=== PATIENT | female | born 1960 | race American Indian/Alaskan Native ===

== ENCOUNTER 2019-04-05 00:43 | Emergency (ER) | payer SELFPAY ==
[2019-04-05 01:03] VITALS: BP 139/72
[2019-04-05 01:48] LABS: Basophils % (Auto) 0.3 % (0.0-1.8); Eosinophils # (Auto) 0.2 K/mm3 (0.0-0.4); Eosinophils % (Auto) 3.7 % (0.0-4.3); Hematocrit 36.2 % (30.3-42.9); Hemoglobin 12.3 gm/dl (10.1-14.3); Lymphocytes # (Auto) 1.8 K/mm3 (1.2-5.4); Lymphocytes % (Auto) 45.3 % (13.4-35.0); Mean Corpuscular HGB Conc 34 % (30-34); Mean Corpuscular Volume 92 fl (79-97); Monocytes # (Auto) 0.4 K/mm3 (0.0-0.8); Monocytes % (Auto) 10.3 % (0.0-7.3); Platelet Count 187 K/mm3 (140-440); Red Blood Count 3.93 M/mm3 (3.65-5.03); Red Cell Distribution Width 14.9 % (13.2-15.2)
[2019-04-05 02:59] LABS: Alanine Aminotransferase 16 units/L (7-56); Albumin 4.2 g/dL (3.9-5); BUN/Creatinine Ratio 32; Blood Urea Nitrogen 19 mg/dL (7-17); Calcium 8.7 mg/dL (8.4-10.2); Hemolysis Index 9
[2019-04-05 04:30] LABS: Bilirubin,Urine NEG (Negative); Blood,Urine NEG (Negative); Color,Urine Straw (Yellow); Protein,Urine <15 mg/dL mg/dL (Negative)
--- NOTE | 2019-04-05 05:10 | Emergency Department Report ---
ED Abdominal Pain HPI - General Chief Complaint: Abdominal Pain Stated Complaint: ABD PAIN Source: patient Mode of arrival: Ambulatory Limitations: No Limitations - History of Present Illness Initial Comments: Patient is a 58-year-old female with a history of chronic liver disease who presents to the ED with low back pain and lower abdominal pain for 2 weeks. Patient states that she has been diagnosed with constipation but has never bought any medication prescribed. Patient denies fever, chills, dysuria, urinary frequency and urgency, heavy lifting, dizziness, chest pain, shortness of breath, nausea and vomiting or diarrhea fall or traumatic injury, numbness and tingling or weakness of lower extremities bilaterally and hematuria. MD Complaint: abdominal pain, other (lower back pain) -: Gradual, week(s) (2) Location: suprapubic Radiation: suprapubic Migration to: no migration Severity: moderate Severity scale (0 -10): 4 Quality: aching, dull Consistency: constant Improves With: nothing Worsens With: movement Associated Symptoms: denies other symptoms, constipation. denies: nausea, vomiting, diarrhea, fever, chills, dysuria, hematemesis, hematochezia, melena - Related Data Allergies Allergy/AdvReac Type Severity Reaction Status Date / Time peanut Allergy Itching Verified 04/05/19 00:57 ED Review of Systems ROS: Stated complaint: ABD PAIN Other details as noted in HPI Constitutional: denies: chills, fever Eyes: denies: eye pain, eye discharge, vision change ENT: denies: ear pain, throat pain Respiratory: denies: cough, shortness of breath, wheezing Cardiovascular: denies: chest pain, palpitations Endocrine: no symptoms reported Gastrointestinal: abdominal pain. denies: nausea, vomiting, diarrhea Genitourinary: denies: urgency, dysuria, discharge Musculoskeletal: back pain. denies: joint swelling, arthralgia Skin: denies: rash, lesions Neurological: denies: headache, weakness, paresthesias Psychiatric: denies: anxiety, depression Hematological/Lymphatic: denies: easy bleeding, easy bruising ED Past Medical Hx - Past Medical History Previous Medical History?: No - Surgical History Past Surgical History?: No - Social History Smoking Status: Current Every Day Smoker Substance Use Type: Alcohol ED Physical Exam - General Limitations: No Limitations General appearance: alert, in no apparent distress - Head Head exam: Present: atraumatic, normocephalic - Eye Eye exam: Present: normal appearance, PERRL, EOMI - ENT ENT exam: Present: normal exam, normal orophraynx, mucous membranes moist, TM's normal bilaterally, normal external ear exam - Neck Neck exam: Present: normal inspection, full ROM. Absent: tenderness - Respiratory Respiratory exam: Present: normal lung sounds bilaterally. Absent: respiratory distress, wheezes, rales, chest wall tenderness, accessory muscle use, decreased breath sounds - Cardiovascular Cardiovascular Exam: Present: regular rate, normal rhythm, normal heart sounds. Absent: systolic murmur, diastolic murmur, rubs, gallop - GI/Abdominal GI/Abdominal exam: Present: soft, normal bowel sounds. Absent: distended, tenderness, guarding, hyperactive bowel sounds, hypoactive bowel sounds, organomegaly - Extremities Exam Extremities exam: Present: normal inspection, full ROM, normal capillary refill - Back Exam Back exam: Present: normal inspection, full ROM. Absent: tenderness, muscle spasm, paraspinal tenderness - Neurological Exam Neurological exam: Present: alert, oriented X3, CN II-XII intact, normal gait, reflexes normal - Psychiatric Psychiatric exam: Present: normal affect, normal mood - Skin Skin exam: Present: warm, dry, intact, normal color. Absent: rash ED Course Vital Signs 04/05/19 00:58 Temperature 97.7 F Pulse Rate 67 Respiratory 18 Rate Blood Pressure 139/72 O2 Sat by Pulse 97 Oximetry ED Medical Decision Making - Lab Data Result diagrams: 04/05/19 01:26 04/05/19 01:26 - Medical Decision Making This is a 58-year-old female who presented to the ED with lower back pain and lower abdominal pain for 2 weeks. In the ED, patient is alert and oriented 3 and is not in distress. Lab test results were reviewed and on actionable. Patient fell asleep in the ED and slept throughout her ED stay no complaining of any pain just complaining that it was cold. Patient was discharged home and advised to follow-up with her primary care physician in 5-7 days for reevaluation or return to the ED immediately if symptoms get worse. - Differential Diagnosis abdominal pain; constipation; muscle spasm; UTI Critical care attestation.: If time is entered above; I have spent that time in minutes in the direct care of this critically ill patient, excluding procedure time. ED Disposition Clinical Impression: Spasm of muscle of lower back, Abdominal pain in female Disposition: TO HOME OR SELFCARE Is pt being admited?: No Does the pt Need Aspirin: No Condition: Stable Instructions: Abdominal Pain (ED), Muscle Spasm (ED), Low Back Strain (ED) Additional Instructions: Follow-up with your primary care physician in 5-7 days for reevaluation. Return to the ED immediately if symptoms get worse Referrals: PRIMARY CARE, [Primary Care Provider] - 3-5 Days Time of Disposition: 05:16 Print Language: SUDANESE
== END 2019-04-05 05:25 | disposition home or self-care (01) ==
LOC: ED 00:43
DX: M62.830 Muscle spasm of back (principal); R10.30 Lower abdominal pain, unspecified; F17.200 Nicotine dependence, unspecified, uncomplicated
CPT/HCPCS: 36415; 80053; 81001; 83690; 85025

== ENCOUNTER 2020-12-18 00:17 | Emergency (ER) | payer OTHER ==
[2020-12-18 02:26] LABS: Basophils # (Auto) 0.1 K/mm3 (0.0-0.1); Basophils % (Auto) 0.9 % (0.0-1.8); Eosinophils # (Auto) 0.1 K/mm3 (0.0-0.4); Eosinophils % (Auto) 1.8 % (0.0-4.3); Hematocrit 41.7 % (30.3-42.9); Hemoglobin 14.3 gm/dl (10.1-14.3); Lymphocytes # (Auto) 1.9 K/mm3 (1.2-5.4); Lymphocytes % (Auto) 27.2 % (13.4-35.0); Mean Corpuscular HGB Conc 34 % (30-34); Mean Corpuscular Volume 92 fl (79-97); Monocytes # (Auto) 0.3 K/mm3 (0.0-0.8); Monocytes % (Auto) 3.7 % (0.0-7.3); Platelet Count 329 K/mm3 (140-440); Red Blood Count 4.55 M/mm3 (3.65-5.03); Red Cell Distribution Width 13.9 % (13.2-15.2)
[2020-12-18 02:43] LABS: Alanine Aminotransferase 18 units/L (7-56); Albumin 5.2 g/dL (3.9-5); Blood Urea Nitrogen 12 mg/dL (7-17); Calcium 9.2 mg/dL (8.4-10.2); Hemolysis Index 7
[2020-12-18 03:01] LABS: BUN/Creatinine Ratio 24
== END 2020-12-18 22:23 | disposition left against medical advice (07) ==
LOC: ED 00:17
DX: R11.10 Vomiting, unspecified (principal); Z53.21 Procedure and treatment not carried out due to patient leaving prior to being seen by health care provider
CPT/HCPCS: 36415; 80053; 85025

== ENCOUNTER 2021-12-30 01:43 | Emergency (ER) | payer SELFPAY ==
[2021-12-30 09:17] LABS: Hematocrit 40.3 % (30.3-42.9); Mean Corpuscular HGB Conc 35 % (30-34); Mean Corpuscular Volume 93 fl (79-97); Platelet Count 236 K/mm3 (140-440); Red Blood Count 4.34 M/mm3 (3.65-5.03); Red Cell Distribution Width 14.4 % (13.2-15.2)
[2021-12-30 09:38] LABS: Bacteria,Urine 3+ /HPF (Negative); Calcium Oxalate Crystals,Urine 3+; Mucus,Urine FEW /HPF
[2021-12-30 09:39] LABS: Alanine Aminotransferase 13 units/L (7-56); Albumin 4.6 g/dL (3.9-5); Blood Urea Nitrogen 10 mg/dL (7-17); Calcium 9.3 mg/dL (8.4-10.2); Hemolysis Index 10
[2021-12-30 09:48] LABS: BUN/Creatinine Ratio 17
[2021-12-30 09:54] LABS: RBC,Urine > 182.0 /HPF (0.0-6.0); WBC,Urine > 182.0 /HPF (0.0-6.0)
[2021-12-30 10:00] LABS: Color,Urine Straw (Yellow)
[2021-12-30] MEDS ORDERED: SODIUM CHLORIDE 0.9% 1000 ML 1,000 ML IV ONE (11:11)
[2021-12-30] MEDS ORDERED: cefTRIAXone/NS 1 GM/50 ML 1 GM/50 ML BAG IV ONE (11:11)
[2021-12-30] MEDS ORDERED: KETOROLAC 30 MG/1 ML INJ IV ONE (12:30)
[2021-12-30] MEDS ORDERED: ONDANSETRON 4 MG/2 ML INJ IV ONE (12:30)
--- NOTE | 2021-12-30 12:30 | Emergency Department Report ---
ED Abdominal Pain HPI - General Chief Complaint: Urogenital-Female Stated Complaint: DIFFICULTY URINATING PUI?: No Time Seen by Provider: 12/30/21 08:24 Source: patient, EMS Mode of arrival: Stretcher Limitations: No Limitations - History of Present Illness Initial Comments: 61 yo comes to the ER with "difficulty urinating." No burning or frequency but difficult to start stream. no abd pain or back pain. no fever or chills. am bulatory and nad in ER. Migration to: no migration Severity: moderate Severity scale (0 -10): 3 Quality: aching Consistency: constant Improves With: nothing Worsens With: eating Associated Symptoms: denies other symptoms. denies: nausea, vomiting, diarrhea, fever, chills, constipation, dysuria, hematemesis, hematochezia, melena, hematuria, anorexia, syncope - Related Data Previous Rx's Medication Instructions Recorded Last Taken Type Ondansetron [Zofran Odt] 4 mg PO Q8HR PRN #10 tab.rapdis 12/30/21 Unknown Rx Sulfamethoxazole/Trimethoprim 1 each PO BID #10 tablet 12/30/21 Unknown Rx [Bactrim DS TAB] Tamsulosin [Flomax] 0.4 mg PO QDAY #10 cap 12/30/21 Unknown Rx Allergies Allergy/AdvReac Type Severity Reaction Status Date / Time peanut Allergy Itching Verified 04/05/19 00:57 ED Review of Systems ROS: Stated complaint: DIFFICULTY URINATING Other details as noted in HPI Comment: All other systems reviewed and negative ED Past Medical Hx - Past Medical History Previous Medical History?: No - Surgical History Past Surgical History?: No - Family History Family history: no significant - Social History Smoking Status: Current Every Day Smoker Substance Use Type: Alcohol - Medications Home Medications: Home Medications Medication Instructions Recorded Confirmed Last Taken Type Ondansetron [Zofran Odt] 4 mg PO Q8HR PRN #10 tab.rapdis 12/30/21 Unknown Rx Sulfamethoxazole/Trimethoprim 1 each PO BID #10 tablet 12/30/21 Unknown Rx [Bactrim DS TAB] Tamsulosin [Flomax] 0.4 mg PO QDAY #10 cap 12/30/21 Unknown Rx ED Physical Exam - General Limitations: No Limitations General appearance: alert, in no apparent distress - Head Head exam: Present: atraumatic, normocephalic - Eye Eye exam: Present: normal appearance - ENT ENT exam: Present: mucous membranes moist - Neck Neck exam: Present: normal inspection - Respiratory Respiratory exam: Present: normal lung sounds bilaterally. Absent: respiratory distress - Cardiovascular Cardiovascular Exam: Present: regular rate, normal rhythm. Absent: systolic murmur, diastolic murmur, rubs, gallop - GI/Abdominal GI/Abdominal exam: Present: soft, normal bowel sounds - Extremities Exam Extremities exam: Present: normal inspection - Back Exam Back exam: Present: normal inspection - Neurological Exam Neurological exam: Present: alert, oriented X3 - Psychiatric Psychiatric exam: Present: normal affect, normal mood - Skin Skin exam: Present: warm, dry, intact, normal color. Absent: rash ED Course Vital Signs 12/30/21 12/30/21 02:04 15:34 Temperature 98 F Pulse Rate 68 70 Respiratory 16 18 Rate Blood Pressure 134/72 130/69 [Right] O2 Sat by Pulse 99 99 Oximetry ED Medical Decision Making - Lab Data Result diagrams: 12/30/21 08:29 12/30/21 08:29 - Radiology Data Radiology results: report reviewed, image reviewed see report - Medical Decision Making Labs 12/30/21 12/30/21 12/30/21 08:29 08:29 09:05 WBC 4.9 RBC 4.34 Hgb 14.0 Hct 40.3 MCV 93 MCH 32 MCHC 35 H RDW 14.4 Plt Count 236 Sodium 140 Potassium 4.4 Chloride 102.4 Carbon Dioxide 30 Anion Gap 12 BUN 10 Creatinine 0.6 Estimated GFR > 60 BUN/Creatinine Ratio 17 Glucose 93 Calcium 9.3 Total Bilirubin 0.60 AST 19 ALT 13 Alkaline Phosphatase 49 Total Protein 6.5 Albumin 4.6 Albumin/Globulin Ratio 2.4 Urine Color Straw Urine Turbidity Cloudy Specific [place] (Man) 1.020 Ur Protein (Man) 3+ Ur Ketones (Man) Negative Ur Nitrite (Man) Negative Ur Reducing Substances Not Reportable Urine Bilirubin (Man) Negative Urine Ictotest Not Reportable Leukocyte Esterase (Man) 2+ Urine WBC (Auto) > 182.0 H Urine RBC (Auto) > 182.0 U Epithel Cells (Auto) 32.0 H Urine Bacteria (Auto) 3+ Urine RBC (Manual) 3+ Urine WBC Clumps 3+ Calcium Oxalate Crystal 3+ Urine Mucus Few Ur Yeast w Hyphae 3+ Vital Signs 12/30/21 02:04 Temperature 98 F Pulse Rate 68 Respiratory 16 Rate Blood Pressure 134/72 [Right] O2 Sat by Pulse 99 Oximetry labs noted ua noted ct noted 1L NS/toradol/zofran/rocephin in ER educated on findings of todays studies dc home with dc plan of care including diet, meds, activity and follow up. on d/c pt ambulatory and taking pop - Differential Diagnosis ro uti/stone Critical care attestation.: If time is entered above; I have spent that time in minutes in the direct care of this critically ill patient, excluding procedure time. ED Disposition Clinical Impression: Kidney stone, Cystitis Disposition: HOME / SELF CARE / HOMELESS Is pt being admited?: No Does the pt Need Aspirin: No Condition: Stable Instructions: Kidney Stones, [id number] Additional Instructions: STAY WELL HYDRATED WITH WATER MEDS ORDERED TODAY FOLLOW UP WITH UROLOGY REFERRAL BELOW MOTRIN OR TYLENOL FOR PAIN Prescriptions: Sulfamethoxazole/Trimethoprim [Bactrim DS TAB] 1 each PO BID #10 tablet Tamsulosin [Flomax] 0.4 mg PO QDAY #10 cap Ondansetron [Zofran Odt] 4 mg PO Q8HR PRN #10 tab.rapdis PRN Reason: Vomiting Referrals: MERCED RIOS MD [Staff Physician] - 3-5 Days DELORES HELLER MD [Primary Care Provider] - 3-5 Days Time of Disposition: 14:13
--- NOTE | 2021-12-30 13:17 | Cat Scan Report ---
CT ABDOMEN AND PELVIS WITHOUT CONTRAST HISTORY: PAIN RO K STONE COMPARISON: None. TECHNIQUE: Axial CT images were obtained through the abdomen and pelvis without IV contrast. Sagittal and coronal reformatted images. All CT scans at this location are performed using CT dose reduction for ALARA by means of automated exposure control. FINDINGS: CT ABDOMEN: Lung Bases: Clear. Liver: The liver is mildly enlarged but no parenchymal disease or mass is appreciated. Biliary: No significant abnormality. Spleen: No significant abnormality. Unenlarged. Pancreas: No significant abnormality. Adrenals: No significant abnormality. Kidneys: There are 2 calyceal stones in the superior left kidney measuring 3 mm and 2 mm. No right ne phrolithiasis. No focal renal lesion. No ureteral stone or hydronephrosis. Lymphatics: No lymphadenopathy. Vasculature: Mild atherosclerotic disease without acute abnormality. Bowel/Peritoneum: No significant abnormality. No free air. No free fluid. Normal appendix. CT PELVIS: : The bladder is poorly distended but there is suggestion of mild diffuse bladder wall thickening m easuring up to 9 mm. Cystitis could be considered. There is a 1.7 cm right ovarian cyst. The uterus a nd left ovary are unremarkable. Osseous Structures: Nothing acute. Grade 1 anterolisthesis of L4 with respect to L5 is noted. Additional Findings: None IMPRESSION: Nonobstructing left nephrolithiasis. No ureteral stones or hydronephrosis. 1.7 cm right ovarian cyst. The bladder is poorly distended but there is suggestion of diffuse bladder wall thickening, correlate for cystitis. Mild hepatomegaly. Signer Name: Ananda Martini Jr, MD Signed: 12/30/2021 1:12 PM Workstation Name: [id number]
[2021-12-30 15:36] VITALS: BP 130/69
== END 2021-12-30 15:34 | disposition home or self-care (01) ==
LOC: ED 01:43
DX: N20.0 Calculus of kidney (principal); N30.90 Cystitis, unspecified without hematuria; F17.200 Nicotine dependence, unspecified, uncomplicated; Z72.89 Other problems related to lifestyle; Z79.899 Other long term (current) drug therapy; Z91.010 Allergy to peanuts
CPT/HCPCS: 36415; 74176; 80053; 81001; 85027; 96365; 96375; 99284; J0696; J1885; J2405; J7030

== ENCOUNTER 2022-01-17 06:02 | Emergency (ER) | payer SELFPAY ==
[2022-01-17] MEDS ORDERED: KETOROLAC 30 MG/1 ML INJ IV ONE (08:43)
[2022-01-17] MEDS ORDERED: ONDANSETRON 4 MG/2 ML INJ IV ONE (08:43)
[2022-01-17] MEDS ORDERED: SODIUM CHLORIDE 0.9% 1000 ML 1,000 ML IV ONE (08:43)
[2022-01-17 09:11] LABS: Basophils # (Auto) 0.1 K/mm3 (0.0-0.1); Basophils % (Auto) 1.4 % (0.0-1.8); Eosinophils # (Auto) 0.2 K/mm3 (0.0-0.4); Eosinophils % (Auto) 5.3 % (0.0-4.3); Hematocrit 43.4 % (30.3-42.9); Hemoglobin 14.7 gm/dl (10.1-14.3); Lymphocytes # (Auto) 1.6 K/mm3 (1.2-5.4); Lymphocytes % (Auto) 36.1 % (13.4-35.0); Mean Corpuscular HGB Conc 34 % (30-34); Mean Corpuscular Volume 92 fl (79-97); Monocytes # (Auto) 0.3 K/mm3 (0.0-0.8); Monocytes % (Auto) 6.1 % (0.0-7.3); Platelet Count 323 K/mm3 (140-440); Red Blood Count 4.69 M/mm3 (3.65-5.03); Red Cell Distribution Width 14.1 % (13.2-15.2)
[2022-01-17 09:18] LABS: Alanine Aminotransferase 15 units/L (7-56); Albumin 5.4 g/dL (3.9-5); Blood Urea Nitrogen 9 mg/dL (7-17); Calcium 9.9 mg/dL (8.4-10.2); Hemolysis Index 5
[2022-01-17 09:41] LABS: BUN/Creatinine Ratio 18
[2022-01-17 11:16] VITALS: BP 132/78
[2022-01-17 11:54] LABS: Color,Urine Yellow (Yellow)
[2022-01-17 11:55] LABS: Hyaline Casts,Urine 1 /LPF; Mucus,Urine FEW /HPF; WBC,Urine < 1.0 /HPF (0.0-6.0)
--- NOTE | 2022-01-17 12:35 | Emergency Department Report ---
ED Abdominal Pain HPI - General Chief Complaint: Abdominal Pain Stated Complaint: GENERAL SICKNESS PUI?: No Time Seen by Provider: 01/17/22 08:35 Source: patient, EMS Mode of arrival: Stretcher Limitations: No Limitations - History of Present Illness Initial Comments: Reporting right flank pain for several hours. Denies nausea nor vomiting. MD Complaint: abdominal pain Location: R flank Migration to: no migration Severity scale (0 -10): 2 Consistency: constant Improves With: nothing - Related Data Previous Rx's Medication Instructions Recorded Last Taken Type Ondansetron [Zofran Odt] 4 mg PO Q8HR PRN #10 tab.rapdis 12/30/21 Unknown Rx Sulfamethoxazole/Trimethoprim 1 each PO BID #10 tablet 12/30/21 Unknown Rx [Bactrim DS TAB] Tamsulosin [Flomax] 0.4 mg PO QDAY #10 cap 12/30/21 Unknown Rx Allergies Allergy/AdvReac Type Severity Reaction Status Date / Time peanut Allergy Itching Verified 04/05/19 00:57 ED Review of Systems ROS: Stated complaint: GENERAL SICKNESS Other details as noted in HPI Constitutional: denies: chills, fever Eyes: denies: eye pain, eye discharge, vision change ENT: denies: ear pain, throat pain Respiratory: denies: cough, shortness of breath, wheezing Cardiovascular: denies: chest pain, palpitations Endocrine: no symptoms reported Gastrointestinal: denies: abdominal pain, nausea, diarrhea Genitourinary: denies: urgency, dysuria, discharge Musculoskeletal: denies: back pain, joint swelling, arthralgia Skin: denies: rash, lesions Neurological: denies: headache, weakness, paresthesias Psychiatric: denies: anxiety, depression Hematological/Lymphatic: denies: easy bleeding, easy bruising ED Past Medical Hx - Past Medical History Previous Medical History?: Yes Hx Hypertension: No Hx CVA: No Hx Kidney Stones: Yes - Surgical History Past Surgical History?: No - Social History Smoking Status: Never Smoker Substance Use Type: None - Medications Home Medications: Home Medications Medication Instructions Recorded Confirmed Last Taken Type Ondansetron [Zofran Odt] 4 mg PO Q8HR PRN #10 tab.rapdis 12/30/21 Unknown Rx Sulfamethoxazole/Trimethoprim 1 each PO BID #10 tablet 12/30/21 Unknown Rx [Bactrim DS TAB] Tamsulosin [Flomax] 0.4 mg PO QDAY #10 cap 12/30/21 Unknown Rx ED Physical Exam - General Limitations: No Limitations General appearance: alert, in no apparent distress - Head Head exam: Present: atraumatic, normocephalic - Eye Eye exam: Present: normal appearance - ENT ENT exam: Present: mucous membranes moist - Neck Neck exam: Present: normal inspection - Respiratory Respiratory exam: Present: normal lung sounds bilaterally. Absent: respiratory distress - Cardiovascular Cardiovascular Exam: Present: regular rate, normal rhythm. Absent: systolic murmur, diastolic murmur, rubs, gallop - GI/Abdominal GI/Abdominal exam: Present: soft, normal bowel sounds - Extremities Exam Extremities exam: Present: normal inspection - Back Exam Back exam: Present: normal inspection - Neurological Exam Neurological exam: Present: alert, oriented X3 - Psychiatric Psychiatric exam: Present: normal affect, normal mood - Skin Skin exam: Present: warm, dry, intact, normal color. Absent: rash ED Course Vital Signs 01/17/22 01/17/22 01/17/22 06:26 08:37 11:16 Temperature 98.2 F 98.1 F Pulse Rate 90 71 76 Respiratory 18 18 20 Rate Blood Pressure 124/84 Blood Pressure 131/74 132/78 [Left] O2 Sat by Pulse 100 100 97 Oximetry ED Medical Decision Making - Lab Data Result diagrams: 01/17/22 08:19 01/17/22 08:19 - Radiology Data Radiology results: report reviewed, image reviewed - Medical Decision Making work up negative , UA clear recent CT scan shwoed right ovarian cyst Critical care attestation.: If time is entered above; I have spent that time in minutes in the direct care of this critically ill patient, excluding procedure time. ED Disposition Clinical Impression: Ovarian cyst Disposition: 01 HOME / SELF CARE / HOMELESS Is pt being admited?: No Does the pt Need Aspirin: No Condition: Stable Instructions: Abdominal Pain (ED), Ovarian Cyst, [id number] Referrals: PRIMARY CARE, [Primary Care Provider] - 3-5 Days CHARI YOUNG MD [Staff Physician] - 3-5 Days
[2022-01-17 12:40] LABS: Amphetamine Screen,Urine Negative; Benzodiazepines Screen,Urine Negative; Cannabinoid Screen,Urine Negative; Methadone Screen,Urine Negative; Opiate Screen,Urine Negative
[2022-01-17 13:24] LABS: Cocaine Screen,Urine PRESUMPTIVE POSITIVE
== END 2022-01-17 13:44 | disposition home or self-care (01) ==
LOC: ED 06:02
DX: N83.201 Unspecified ovarian cyst, right side (principal); Z98.890 Other specified postprocedural states; Z91.010 Allergy to peanuts; Z79.899 Other long term (current) drug therapy
CPT/HCPCS: 36415; 80053; 80307; 81001; 82150; 82962; 83690; 85025; 96361; 96374; 96375; 99284; J1885; J2405; J7030